=== PATIENT | male | born 2000 | race African-American/Black ===

== ENCOUNTER 2024-11-06 15:59 | Outpatient (CLI) | payer OTHER | END 2024-11-06 16:00 | disposition home or self-care (01) | LOC: CSHRAD 15:59 | PROVIDERS: ATTEND Student in an Organized Health Care Education/Training Program | DX: R05.3 Chronic cough (principal); R63.4 Abnormal weight loss; J18.9 Pneumonia, unspecified organism | CPT/HCPCS: 71046 ==